=== PATIENT | female | born 1970 | race Caucasian/White ===

== ENCOUNTER 2025-07-18 08:38 | Outpatient (OUT) | payer MEDICAID, SELFPAY ==
--- OUTSIDE RECORDS SUMMARY | 2025-04-25 06:00 | XMS_ITS ---
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 Name Role Phone Kolton Brown Primary Care Provider Mike Lora Unavailable [phone] REASON FOR VISIT Left Shoulder Manipulation Under Anesthesia Encounters Encounter Location Date Provider Diagnosis [facility] [address] [place] [address] 04/25/2025 Mike Gaines Plan Of Treatment Next Appt Details Provider Name:Mike Rivera and, 08/07/2025 09:15:00 AM, [facility] , [address], [address], Progress Notes * LUCHO HELTON ADOB: 0 (55 yo F)Acc No.[id number]:04/25/2025 Patient:?LUCHO HELTON :?Mike Gaines, MDDOB:1970???Age:55 Y???Sex:FemaleDate:04/25/2025Phone:[phone]: [place], [place]-[id number]:Kolton Brown * Images: * Electronic signature of Mike Gaines MD on 07/18/2025 at 08:42 AM ESTSign off status: Pending * Provider: Betina Gaines MD Date: 0 04/25/2025 Generated for Printing/Faxing/eTransmitting on:?07/18/2025 08:42 AM EST
--- OUTSIDE RECORDS SUMMARY | 2025-05-08 06:00 | XMS_ITS ---
Author Organization [facility] Address [address] [place] [address] Care Team Providers Care Taxi Proprietor Name Role Phone Kolton Brown Primary Care Provider Mike Lora [facility] [phone] REASON FOR VISIT 1st PO, lt shoulder manipulation under anesthesia Encounters Encounter Location Date Provider Diagnosis [facility] [address] [address] 05/08/2025 Mike Gaines Plan Of Treatment Next Appt Details Provider Name:Mike Rivera and, 08/07/2025 09:15:00 AM, [address], [address], Progress Notes * LUCHO HELTON ADOB: 0 (55 yo F)Acc No.[id number]:05/08/2025 Progress Notes Patient: Dale LÓPEZ LUCHO Herrera :?Mike Gaines, MDDOB:1970???Age:55 Y???Sex:FemaleDate:05/08/2025Phone:[phone]: [place], [place]-[id number]:Kolton Brown Subjective: * Chief Complaints: * 1 . 1st PO, lt shoulder manipulation under anesthesia. * Medical History: Objective: * Vitals: Assessment: Plan: * Treatment: Forms: * Images: * Electronic signature of Mike Gaines MD on 07/18/2025 at 08:42 AM ESTSign off status: Pending * Provider: Betina Gaines MD Date: 0 05/08/2025 Generated for Printing/Faxing/eTransmitting on:?07/18/2025 08:42 AM EST
--- OUTSIDE RECORDS SUMMARY | 2025-06-20 05:30 | XMS_ITS ---
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 Assessments Encounter Date Diagnosis (ICD Code) Assessment Notes Treatment Notes Treatment Clinical Notes Section Notes 06/20/2025 Adhesive capsulitis of shoulder, left (ICD-10 - M75.02) Plan Of Treatment Next Appt Details Provider Name:Mike Rivera and, 08/07/2025 09:15:00 AM, [address] [facility] [address], [address], Progress Notes * LUCHO HELTON ADOB: 0 (55 yo F)Acc No.[id number]:06/20/2025 Patient:?LUCHO HELTON :?Mike Gaines MDDOB:1970???Age:55 Y???Sex:FemaleDate:06/20/2025Phone:[phone]: [place], [place]-[id number]:Kolton Brown * Images: * Electronic signature of Mike Gaines MD on 07/18/2025 at 08:42 AM ESTSign off status: Pending * Provider: Betina Gaines MD Date: Generated for Printing/Faxing/eTransmitting on:?07/18/2025 08:42 AM EST
--- OUTSIDE RECORDS SUMMARY | 2025-07-18 08:42 | XMS_ITS | Clinical Summary ---
Author Organization [facility] Address [address] [place] [address] Care Team Providers Care Opener Verifier [employer] Name Role Phone Unavailable Primary Care Provider Unavailabl e Social History Tobacco UseTypesPacks/DayYears UsedDateSmoking Tobacco: Never Assessed CommentsUnknownSex and Gender InformationValueDate RecordedSex Assigned at Not on fileLegal CjiCuqjrv02/15/2023 7:25 PM EDTGender IdentityNot on fileSexual OrientationNot on file Plan of Treatment Not on file
--- OUTSIDE RECORDS SUMMARY | 2025-07-18 08:42 | XMS_ITS | Clinical Summary ---
Author Organization [facility] Address [address] [place] [address] Care Team Providers Care Wardrobe Stylist Name Role Phone Cain Magallon MD Unavailable [phone] Kolton Brown DO Primary Care Provider Allergies Active AllergyReactionsCriticalityNoted BqggDyndcrzsTasqylsyZgfvodj89/19/2017 Zujaixh-Dnf-Skz Reductase PybtmepikmNhoqyijzacf57/19/2017Sulfa (Sulfonamide Antibiotics)Kdvbpxb7601/21/20174513RnvwdhKcspyvb26/06/2023Adhesive Tape (Rosins)Rash 01/21/2017 Medications MedicationSigDispense QuantityRefillsLast FilledStart DateEnd DateStatus gabapentin (NEURONTIN) 100 mg capsule Take 300 mg by mouth once daily.Active omeprazole (PRILOSEC) 20 mg capsule Take 20 mg by mouth once daily.Active metFORMIN (GLUCOPHAGE) 500 mg tablet Take 500 mg by mouth once daily.Active ibuprofen (MOTRIN) 800 mg tablet Take 1 tablet by mouth every 8 hours as needed.09/05/2020ctive linaclotide (LINZESS) 145 mcg capsule Take 145 mcg by mouth.06/09/2023ctive diclofenac (VOLTAREN) 1 % topical gel Apply 2 g to affected area.06/09/2023ctive albuterol HFA (PROVENTIL HFA, VENTOLIN HFA) 90 mcg/actuation inhaler TAKE 2 PUFFS BY MOUTH EVERY 4 HOURS ZQEKKX8309/18/2022ctive lisinopril (ZESTRIL) 5 mg tablet Indications:Essential hypertensionTAKE 1 TABLET BY MOUTH DAILY 90 tablet ctive melatonin 3 mg tablet Take 3 mg by mouth as needed for insomnia.Active ascorbic acid (VITAMIN C ORAL) Take by mouth once daily.Active docusate sodium (COLACE ORAL) Take 100 mg by mouth once daily.Active polyethylene glycol 3350 (MIRALAX) 17 gram/dose powder Take 17 g by mouth once daily. Dissolve dose in 4 - 8 ounces of liquid and take as directed. 476 g 11/22/2024tive amLODIPine (NORVASC) 5 mg tablet Indications:Essential hypertensionTAKE 1 TABLET BY MOUTH DAILY 90 tablet 5Active ezetimibe (ZETIA) 10 mg tablet Indications:Mixed hyperlipidemiaTAKE 1 TABLET BY MOUTH DAILY 90 tablet 5Active ezetimibe (ZETIA) 10 mg tablet Indications:Mixed hyperlipidemiaTAKE 1 TABLET BY MOUTH DAILY 90 tablet Discontinued Active Problems ProblemNoted DateDiagnosed LnksWcivdy63/18/2025 Assessment & Plan (11/21/2024 12:06 PM EDT): - Follows with PCP - Albuterol inhaler PRN- rarely needed. Had not used in over a year - Denies SOB, cough, wheezing, recent exacerbation. Lungs CTAB. SpO2 96% RA Type 2 diabetes yxqmurbe34/18/2025 Overview (11/21/2024): - Follows with PCP. - Stable on Metformin Obesity, Class I, BMI 30-34.9003/22/2023astroesophageal reflux kxykksn6610/25/2022 Assessment & Plan (11/20/2024 6:25 PM EDT): - Stable on omeprazole Obesity, Class II, BMI 35-39.9004/30/2021Vasospastic gzgmpk5903/01/2017 Overview (03/01/2017): Microvascular angina Assessment & Plan (11/20/2024 6:38 PM EDT): - Follows with Cardiology, Dr Geiger. JESSICA 06/08/2024. - ECHO 06/14/2023: EF = 63 ?? 5%. -NM PET/CT Cardiac stress test 07/14/2023: 1. PET Perfusion Study: Normal. 2. No evidence of ischemia. 3. No evidence of scarred myocardium. - OSH Cardiac Cath 12/30/2016 showed vasospasm noted with engagement of RCA - Cardiac clearance given by Dr Geiger in mychart encounter on 11/15/2024. Overall at acceptablecardiac risk based on my last assessment in late 2023 of this patient. Obesity, Class III, BMI >= 40 (morbid obesity) E66.01001/24/2017Precordial pain 01/24/2017Essential wmgldeckliyw83/22/2017 Assessment & Plan (11/21/2024 12:04 PM EDT): - Follows with Cardiology, Dr Geiger. [facility] 06/08/2024. - Controlled on Amlodipine and lisinopril - Denies chest pain, palpitations, shortness of breath, lightheadedness, dizziness, syncope, PND, and edema. Last 14 BP Last 14 Encounter BP Readings: Date: BP: 11/21/2024 143/77 10/12/2024 135/70 03/21/2023 121/71 04/30/2021 120/74 07/30/2020 121/51 03/01/2017 133/66 01/24/2017 121/73 Mixed hebczqbvzucffm16/22/2017 Assessment & Plan (11/20/2024 6:28 PM EDT): -Follows with Cardiology - Takes Ezetimibe Encounters DateTypeDepartmentCare XsmbFuznwhyhtbm63/09/2025Refill Cardiology [address] [place] [address] Devon Geiger MD Refill Uyplnrv6007/02/2025Telephone General Surgery [address] [id number] Lauren Crenshaw MD Patient Bjktib8006/25/2025 1:42 PM EDT - 06/25/2025 11:59 PM EDTHospital Encounter Cardiovascular Testing [address] [place] [id number] Dyspnea on exertion [R06.09] Discharge Disposition: Home06/11/2025 3:30 PM EDTOffice Visit Cardiology [address] [place] [address] Devon Geiger MD Dyspnea on exertion (Primary Dx); Essential (primary) hypertension; Bnci-ISTMM-54 condition; Vasospastic rstsvt0206/04/20254748Ygyjbx36/30/2025Telephone Cardiology [address] [place], [place] [phone] Devon Geiger MD Cardiac Clearancefrom Last 3 Months Family History Medical HistoryRelationCommentsCancerBrotheresophagealBreast CancerDaughter CancerFatherCataractFatherCoronary Artery DiseaseFatherCABG x 3DiabetesFather HeartFatherHyperlipidemiaFatherHypertensionFatherCataractMotherHypertension MotherKidney DiseaseMotherCancerSistersmall cell carcinomaAnesthesia ProblemsNo Family HistoryMalig HyperthermiaNo Family HistoryRelationStatusCommentsBrother DeceasedDaughterAliveFatherAliveMotherAliveSisterDeceased Social History Tobacco UseTypesPacks/DayYears UsedDateSmoking Tobacco: NeverSmokeless Tobacco: Never Tobacco Cessation:Counseling Given: Not Answered Alcohol UseStandard Drinks/WeekCommentsNo0 (1 standard drink = 0.6 oz pure alcohol)Area Deprivation IndexAnswerDate RecordedNational Score (1-100), lower number is lower riskNot on file08/14/2020State Score (1-10), lower number is lower riskNot on file08/14/2020Data from: https://www.neighborhoodatlas.medicine.[employer].edu/. Last address used for calculationNot on file08/14/2020CommentsNoSex and Gender Information ValueDate RecordedSex Assigned at RwpiiNxjpxt58/18/2020 5:46 AM ESTLegal Sex Etxipm7101/17/2017 10:18 AM EDTGender EplqdbxbHzcdwd12/18/2020 5:46 AM ESTSexual TlczijemdmmSedsjmej18/18/2020 5:46 AM EST Last Filed Vital Signs Vital SignReadingTime TakenCommentsBlood Qhsyijfi411/7310 3:23 PM EDT Bxixm6358 3:23 PM LBOLdqfnoylylu93 ??C (96.8 ??F)11/22/2024 1:30 PM EDT Respiratory Selg4807 3:23 PM EDTOxygen Kjjeacycqk44%06/11/2025 3:23 PM EDTInhaled Oxygen Concentration--Asnrue533.9 kg (240 lb)06/11/2025 3:23 PM EDT Lpjefv390.6 cm (5' 6 )06/11/2025 3:23 PM EDTBody Mass Index38.7406/11/2025 3:23 PM EDT Plan of Treatment Health MaintenanceDue DateLast DoneCommentsDiabetic Foot Exam02/26/1980Annual PCP Team Chronic Disease Visit02/26/1988Anxiety Nlsexagzv62/23/1988Depression Nosbwuutm92/23/1988HIV Hzaqgedsf82/23/1988Hepatitis C Usqexiavm45/23/1988 Hepatitis B Vaccine (1 of 3 - 19+ 3-dose series)1989Pneumococcal Vaccine: 50+ (1 of 2 - PCV)1989Cervical Cancer Mzcykwlzz78/23/1991CT Colonography 2015Cologuard (FIT-DNA)02/25/20152795Lipoqvrermi20/23/2015Colorectal Cancer Csgxvihbo13/23/2015Fecal Occult Blood02/25/20151495Zhjzspxmrcgcu09/23/2015Shingrix Vaccine (1 of 2)02/26/2020LDL Ksalhvazpps07/20/202402/3Dilated Retinal Exam/3Covid-19 Vaccine (1 - 2024- season)2025Influenza Vaccine (#1)2025Urine Albumin:Creatinine Ratio01601/05/2025, 08/18/20234526DlZ3W70610/10/2024, 06/06/2025, 01/24/2025, Additional history existsMammogram Chwpcrrzz29/, 02/28/2025, 02/28/2025, Additional history existsDTaP,Tdap,Td Vaccine (3 - Td or Tdap)03/23/2029 03/23/2019, 10/22/2010 Goals GoalPatient Goal TypeAssociated ProblemsRecent ProgressPatient-Stated?Author Blood Pressure < 130/80 Blood Qarjnyer724/73(06/11/2025 3:23 PM EDT)NoFulks, Disheila Procedures Procedure NamePriorityDate/TimeAssociated DiagnosisCommentsLVEF ECHORoutine 06/25/2025 2:34 PM EDT CUQDGtkdvqe61/21/2025 2:34 PM EDT Dyspnea on exertion from Last 3 Months Results * LVEF ECHO (06/25/2025 2:34 PM EDT)ComponentValueRef RangeTest MethodAnalysis TimePerformed AtPathologist SignatureLV Ejection Mmpetytx21%[facility]IOLOGYComment: (2D biplane) EF > 54 An LV Ejection Fraction of > 50% is normal Specimen (Source)Anatomical Location / LateralityCollection Method / Volume Collection TimeReceived Time06/25/2025 2:34 PM EDT Narrative Authorizing ProviderResult TypeResult StatusDevon Geiger MDLVEF RESULTS Final ResultPerforming OrganizationAddressCity/State/ZIP CodePhone Number [facility] [phone] [place] [address] * ECHO (06/25/2025 2:34 PM EDT)Specimen (Source)Anatomical Location / Laterality Collection Method / VolumeCollection TimeReceived Time06/25/2025 2:34 PM EDT Impressions [facility] - 06/25/2025 4:35 PM EDT CONCLUSIONS: - Technically difficult exam due to suboptimal positioning, body habitus and Frozen left shoulder, pt had shoulder manipulated. - Exam indication: Dyspnea on Exertion - The left ventricle is normal in size. Left ventricular systolic function is normal. EF = 61 ?? 5% (2D biplane) Normal left ventricular diastolic function. - The right ventricle is normal in size. Right ventricular systolic function is normal. - There are no significant valvular abnormalities. - Exam was compared with the prior echocardiographic exam performed on 06/14/2023. There is no significant change. * * * Final * * * Narrative [facility] - 06/25/2025 4:35 PM EDT Echocardiography Report: Transthoracic Echo [facility] Date of service: 06/25/2025 2:34:31 PM Ordering physician: DEVON GEIGER Exam indication: Dyspnea on Exertion Technologist: Norah Weaver [facility] Interpreting physician: Reyes Edmondson MD PATIENT: Name: MS. LUCHO HELTON : 1970 Age: 55 years Gender: F History of hypertension and dyslipidemia. Primary rhythm: sinus. Height: 167.60 cm BSA: 2.25 m?? Weight: 108.86 kg BMI: 38.8 kg/m?? Heart rate ? 70 bpm Blood pressure 114/72 mmHg Technically difficult exam due to suboptimal positioning, body habitus and Frozen left shoulder, pt had shoulder manipulated. Color Doppler was utilized to interrogate the cardiac valves assessed and spectral Doppler was utilized to determine the flow velocities and pressure gradients reported in this exam. Myocardial strain analysis was performed in this exam to aid in the assessment of cardiac function. MEASUREMENTS: ? Value ? Indexed ?Normal Max aortic dimension 3.1 cm Ao < 3.8 Left atrial volume 48 ml (biplane A-L) 22 ml/m Darling <= 34 LV ID (diastole) ? 3.8 cm (2D) ? 1.70 cm/m?? LV ID (systole) ?2.6 cm (2D) ? 1.14 cm/m?? IVS, leaflet tips ?0.8 cm (2D) Posterior wall thickness 0.8 cm (2D) Left ventricular mass ?90 g (2D) ? 40 g/m?? Global peak long strain ??-18.3 % LV stroke volume ? 45 ml (2D biplane) LV end diastolic volume 74 ml (2D biplane) 32.8 ml/m 29<=EDVi<62 LV end systolic volume ?? 29 ml (2D biplane) ??12.9 ml/m?? Ejection Fraction 61 % (2D biplane) EF > 54 FINDINGS: LEFT VENTRICLE The left ventricle is normal in size. Left ventricular systolic function is normal globally. Global LV myocardial strain is normal. The relative regional strain ratio is 0.5 (a score of greater than 1 is sensitive and specific for the diagnosis of cardiac amyloidosis). Normal left ventricular diastolic function. Mitral annular lateral E/e': 5.1. Mitral annular septal E/e': 6.4. Wall Motion: All scored segments are normal. RIGHT VENTRICLE The right ventricle is normal in size. Right ventricular systolic function is normal. RV systolic tissue Doppler velocity is 12.0 cm/s. Tricuspid annular displacement is 2.4 cm. Estimated right ventricular systolic pressure is not reported due to an insufficient tricuspid regurgitation signal. Estimated right atrial pressure is not included as the IVC was not seen. LEFT ATRIUM The left atrial cavity is normal in size. Pulmonary Veins: The pulmonary venous pattern showed normal systolic flow. RIGHT ATRIUM The right atrial cavity is normal in size. MITRAL VALVE The mitral valve leaflets are structurally normal. Iroquois mitral valve. There is trace mitral valve regurgitation. There is no thickening. The pressure half time is 59 msec. The peak mitral E/A ratio is 0.92. The average mitral E/e' ratio is 5.7. The mitral flow deceleration time is 203 msec. TRICUSPID VALVE The tricuspid valve leaflets are structurally normal. Iroquois tricuspid valve. There is trace tricuspid valve regurgitation. There is no thickening. AORTIC VALVE There is no aortic valve regurgitation. Tricuspid aortic valve. There is mild thickening. The peak gradient is 3 mmHg (peak velocity = 85.4 cm/s). PULMONIC VALVE The pulmonic valve was not seen or not interrogated. There is no pulmonic valve regurgitation. AORTA The visualized aorta is normal in size. Measurements - Mid ascending aorta 3.1 cm. PULMONARY ARTERIES The pulmonary arteries are unseen or not interrogated. INTERATRIAL SEPTUM The interatrial septum is unseen or not interrogated. PERICARDIUM There is no pericardial effusion. Authorizing ProviderResult TypeResult StatusNickingsley Geiger MDECHOFinal Result Performing OrganizationAddressCity/State/ZIP CodePhone Number [facility] [address] [place] [address] from Last 3 Months Insurance * Guarantor: uLcho Helton AAcpopeyeunt TypeRelation to PatientDate of BirthPhone Billing RvqqlhcNrffshCrvp1970 [address] [place] [address] [facility] Address: [address] [place] [address] [address] [place] [address] Care Teams Team MemberRelationshipSpecialtyStart DateEnd Date Kolton Brown DO [address] [place] [phone] PCP - GeneralFamily Yqcuvizh81/2/20 Cain Magallon MD [address] [facility] [address] [place] [address] Primary Staff PhysicianCardiology11/21/18
--- OUTSIDE RECORDS SUMMARY | 2025-07-18 08:43 | XMS_ITS | Clinical Summary ---
Author Organization [employer] [facility] Address [id number] [address] [place] [address] Care Team Providers Care Bible Reader Name Role Phone IsiahKolton reid Primary Care Provider [phone] Allergies Active AllergyReactionsCriticalityNoted DateCommentsAdhesiveDermatitis,Other (See Comments),IdaxAyc8006/21/20162988OtbnllrwBgadzznsdf44/17/2016MorphineNausea And Vomiting,XxdvfhmjAeh00/03/1871Pmzxdun-Rej-Htz Reductase Inhibitorsmuscle cramps, Other (See Comments),pain09/05/2007 Muscle aches Sulfa (Sulfonamide Antibiotics)Nausea And UcgyjuwdYgs02/02/2011 Medications MedicationSigDispense QuantityRefillsLast FilledStart DateEnd DateStatus albuterol (PROVENTIL,VENTOLIN) 2.5 mg /3 mL (0.083 %) nebulizer solution Indications:Mild intermittent asthma without complicationInhale 3 mL (2.5 mg total) by nebulization 3 (three) times a day as needed for wheezing. 75 mL ctive docusate sodium (COLACE) 100 mg capsule Take 1 capsule (100 mg total) by mouth in the morning.Active fluticasone propionate (FLONASE) 50 mcg/actuation nasal spray INSTILL ONE SPRAY IN EACH NOSTRIL EVERY MORNING 16 mL ctive ezetimibe (ZETIA) 10 mg tablet 05/14/2024ctive melatonin (CIRCADIN) tablet Take 1 tablet (3 mg total) by mouth.Active amLODIPine (NORVASC) 5 mg tablet 08/06/2024Active lisinopriL (PRINIVIL,ZESTRIL) 5 mg tablet Indications:Type 2 diabetes mellitus with diabetic polyneuropathy ([facility])Take 1 tablet (5 mg total) by mouth in the morning. 90 tablet 4Active ondansetron ODT (ZOFRAN ODT) 4 mg disintegrating tablet Dissolve 1 tablet (4 mg total) on tongue every 8 (eight) hours as needed for nausea or vomiting. 20 tablet 5Active polyethylene glycol (CLEARLAX) 17 gram/dose powder Take 17 g by mouth in the morning. 510 g 5Active cyclobenzaprine (FLEXERIL) 10 mg tablet Take 1 tablet (10 mg total) by mouth every 8 (eight) hours as needed for muscle spasms. 30 tablet 5Active gabapentin (NEURONTIN) 300 mg capsule Indications:Diabetic polyneuropathy associated with type 2 diabetes mellitus ([facility])TAKE 1 CAPSULE BY MOUTH IN THE MORNING AND 1 CAPSULE BEFORE BEDTIME 60 capsule 5Active linaCLOtide (LINZESS) 145 mcg capsule Take 1 capsule (145 mcg total) by mouth every morning before breakfast. 30 capsule 5Active metFORMIN (GLUCOPHAGE) 500 mg tablet Indications:Type 2 diabetes mellitus with diabetic polyneuropathy ([facility])TAKE 2 TABLETS BY MOUTH EVERY MORNING AND TAKE 2 TABLETS BY MOUTH EVERY EVENING WITH MEALS 180 tablet 5Active omeprazole (PriLOSEC) 20 mg capsule TAKE 1 CAPSULE BY MOUTH EVERY MORNING 30 capsule 5Active ibuprofen (MOTRIN) 800 mg tablet Indications:Low back pain, unspecified back pain laterality, unspecified chronicity, unspecified whether sciatica presentTAKE 1 TABLET BY MOUTH EVERY 8 HOURS NEEDED FOR PAIN 90 tablet 5Active albuterol (PROVENTIL HFA;VENTOLIN HFA) 90 mcg/actuation inhaler Indications:Unspecified asthma, uncomplicatedINHALE 2 PUFFS BY MOUTH EVERY 4 HOURS NEEDED FOR WHEEZING OR SHORTNESS OF BREATH 18 g 5Active cyclobenzaprine (FLEXERIL) 10 mg tablet TAKE 1 TABLET BY MOUTH EVERY 8 HOURS NEEDED FOR MUSCLE SPASMS 30 tablet 5Active loratadine (CLARITIN) 10 mg tablet TAKE 1 TABLET BY MOUTH DAILY NEEDED FOR ALLERGIES 30 tablet 5Active loratadine (CLARITIN) 10 mg tablet Take 1 tablet (10 mg total) by mouth daily as needed for allergies. 30 tablet 5109/13/2024Discontinued Active Problems ProblemNoted DateDiagnosed DateMorbid zuqwqaq47/22/2025Colon cancer screening 11/06/2023bnormal finding on CT scan11/06/2023lass 3 severe obesity due to excess calories with serious comorbidity and body mass index (BMI) of40.0 to 44.9 in adult07/11/2023Incomplete rotator cuff tear or rupture of left shoulder, not specified as bohceqwsj06/05/2023Traumatic incomplete tear of left rotator cuff06/09/2023iabetes type 2, /20/2023 Overview (10/25/2022): Gestational diabetes X2. A1C high was 6.5, fasting BS 120. GERD (gastroesophageal reflux disease)3Knee mowvii1610/25/2022 Araeewwqmpxmh08/20/2023Other ybfjokvw09/20/2023iabetic polyneuropathy associated with type 2 diabetes /19/2023Mixed ofehvfqcgobk18/02/2021 Spondylosis without myelopathy or radiculopathy, thoracic fkvnsq7005/01/2020Renal stone12/06/2019Calculus of left vomjbh5710/17/20193499Easedxoyrghg82/20/2018Diabetic evndprpgiy93/22/2018Mixed bccpjwdtnxhrqa65/22/2017Syndrome X (cardiac)01/10/2017 Overview (10/25/2022): Microvascular angina Arteriosclerotic vascular lwyquhb1911/16/2016Lower back pain08/16/2016Calcaneal spur09/18/2014bnormal sensation of upper /04/2013Pain in limb 08/08/20130782Oxycmgvretng31/14/2012Epicondylitis, lateral (tennis elbow)05/19/2012 Essential padprptuyrys60/14/2012 Resolved Problems ProblemNoted DateDiagnosed DateResolved DateModerate major fmypkubxve89/20/2023 01/23/2024Obesity (BMI 30-39.9) Encounters DateTypeDepartmentCare ZyggFdojpfymzmt72/09/2025Refill [facility] [address] [place] [address] Kolton Brown, 06/20/2025Orders Only [facility] [address] [place] [address] Kolton Brown, 06/16/2025Refill [facility] [address] [place] [address] Kolton Brown, Unspecified asthma, vvdcduwepkhjx84/18/2025Refill [facility] [address] [place] [address] Kolton Brown, Low back pain, unspecified back pain laterality, unspecified chronicity, unspecified whether sciatica ocxivdh3905/13/2025 4:30 PM EDTTelemedicine [facility] [address] [place] [address] Kolton Brown, COVID-19 (Primary Dx); Controlled type 2 diabetes mellitus with diabetic polyneuropathy, without long- term current use of insulin ([facility] Morbid obesity ([facility])05/13/20253719Rvlyzz94/08/2025Telephone [facility] [address] [place] [address] Madhuri Morel, CODY 05/13/2025Orders Only [facility] [address] [place] [address] Ref Prov, Not In System 05/03/2025Refill [facility] [address] [place] [address] Kolton Brown, DO from Last 3 Months Immunizations ImmunizationAdministration DatesNext QbpOrvc2903/23/2019,10/22/2010 Family History Medical HistoryRelationNameCommentsEsophageal cancerBrotherBreast cancerDaughter 1PancreatitisDaughter 2DiabetesFatherHeart diseaseFatherHyperlipidemiaFather HypertensionFatherHypertensionMotherLung cancerSisterRelationNameStatusComments BrotherDeceasedDaughter 1AliveDaughter 2AliveFatherAliveMotherAliveSister DeceasedSon 1AliveSon 2Alive Social History Tobacco UseTypesPacks/DayYears UsedDateSmoking Tobacco: NeverSmokeless Tobacco: Never Tobacco Cessation:Counseling Given: Not Answered Alcohol UseStandard Drinks/WeekCommentsNot Currently0 (1 standard drink = 0.6 oz pure alcohol)[facility] UtilitiesAnswerDate RecordedIn the past 12 months has the [employer], gas, oil, or water [employer] threatened to shut off services in your home?No01/23/2024Social Connection and Isolation PanelAnswerDate RecordedIn a typical week, how many times do you talk on the phone with family, friends, or neighbors?More than three times a week10/18/2022How often do you get together with friends or relatives?Twice a week10/18/2022How often do you attend rastafarian or taoism services?Never10/18/2022o you belong to any clubs or organizations such as rastafarian groups, unions, fraternal or athletic groups, or school groups?No 10/18/2022How often do you attend meetings of the clubs or organizations you belong to?Never10/18/2022re you , , , , never , or living with a partner?Izwsuux1010/18/2022UDIT-CAnswerDate RecordedQ1: How often do you have a drink containing alcohol?Never10/18/2022Q2: How many drinks containing alcohol do you have on a typical day when you are drinking? Patient does not drink10/18/2022Q3: How often do you have six or more drinks on one occasion?Never10/18/2022Overall Financial Resource Strain (CARDIA)AnswerDate RecordedHow hard is it for you to pay for the very basics like food, housing, medical care, and heating?Not hard at all01/22/2025PHQ-2AnswerDate RecordedTotal Fmowk664[facility] [place] [facility] - Occupational Stress QuestionnaireAnswerDate RecordedDo you feel stress - tense, restless, nervous, or anxious, or unable to sleep at night because yourmind is troubled all the time - these days?Very much10/18/2022Exercise Vital SignAnswerDate RecordedOn average, how many days per week do you engage in moderate to strenuous exercise (like a brisk walk)?5 days01/23/2024On average, how many minutes do you engage in exercise at this level?30 min01/23/2024RAPARE - TransportationAnswerDate RecordedIn the past 12 months, has lack of transportation kept you from medical appointments or from getting medications?No01/22/2025In the past 12 months, has lack of transportation kept you from meetings, work, or from getting things needed for daily living?No01/22/2025Housing InstabilityAnswerDate RecordedAre you worried or concerned that in the next two months you may not have stable housing that you own, rent or stay in as a part of a household?No01/22/2025 ChildcareAnswerDate RecordedDo problems getting director child make it difficult for you to work or study?No10/18/2022EmploymentAnswerDate RecordedDo you need help finding a local career center and/or a training program?No10/18/2022Hunger ScreeningAnswerDate RecordedWithin the past 12 months we worried whether our food would run out before we got money to buy more.Never True01/24/2025Within the past 12 months the food we bought just didn't last and we didn't have money to get more.Never True01/24/2025Purpose - LifeAnswerDate RecordedI have a purpose and direction in my life.Strongly Agree10/18/2022EducationAnswerDate RecordedWhat is the highest level of school you have completed or the highest degree you have received?Associate degree: academic dmixoay1610/18/2022 CommentsNoSex and Gender InformationValueDate RecordedSex Assigned at Himykp9806/04/2022 10:35 AM EDTLegal PrqOaqpib38/04/2015 12:01 PM EDTGender InjxtyzeQznycd52/30/2022 10:35 AM EDTSexual KfkhmwhgqghOjarefji40/30/2022 10:39 AM EDT Last Filed Vital Signs Vital SignReadingTime TakenCommentsBlood Ocpruuwy325/80001/24/2025 9:37 AM EDT Wtkhu161801/24/2025 9:37 AM USZTompxdcuhdc62.3 ??C (101 ??F)05/13/2025 5:11 PM EDT Respiratory Utjq856201/24/2025 9:37 AM EDTOxygen Oefgfsqukv53%01/24/2025 9:37 AM EDTInhaled Oxygen Concentration--Ygymao188.9 kg (242 lb 3.2 oz)01/24/2025 9:37 AM XAPPpgqwf902.6 cm (5' 5.98 )01/24/2025 9:37 AM EDTBody Mass Index39.11 01/24/2025 9:37 AM EDT Plan of Treatment DateTypeDepartmentCare Team (Latest Contact Info)Yviiplxflka85/24/2025 10:30 AM ESTOffice Visit [facility] [address] [place] [phone] Kolton Brown, DO [address], [place] [address] Health MaintenanceDue DateLast DoneCommentsStatin Use: Llxumdqijmgctu1970 Statin Use: Etagcadb1970Influenza Pcvccwn5405/06/2025Diabetic Foot Exam , 10/25/2022, 10/25/2022Zoster (Shingles) Vaccine (1 of 2) 07/27/2025Postponed from 02/26/2020 (Vaccine Not Available)Adult BMI Follow Up [place] BMI Aolmqmvtx70/2025Depression Xgdnafkyu91/Tobacco Azdnraehq36/Mammogram /, 02/28/2025, 02/15/2024, Additional history existsDiabetic Ophthalmology Exam/01/2025, 04/20/2024, 06/10/2023, Additional history existsDTaP,Tdap and Td Vaccines (3 - Td or Tdap)/, 10/22/20100740Ysiouaflcbp31/13/203403/, 11/16/2023, 08/22/2018, Additional history existsPap DicffPtngfdjcgqfn78/28/2021, 07/02/2021 Medical Devices Not on file Procedures Procedure NamePriorityDate/TimeAssociated DiagnosisComments DIABETES EYE EXAM Oevobak0405/10/2025 8:58 AM EDTMAMM SCREENING BILATERAL W OEREdmgyzh93/26/2025 Encounter for screening mammogram for malignant neoplasm of breast [employer] FIGZKRRPFLAUgcoqdu21/13/2024 7:58 AM EDT from Last 3 Months or Most Recently Relevant to Health Maintenance Results * DIABETES EYE EXAM (05/10/2025 8:58 AM EDT) Narrative Authorizing ProviderResult TypeResult StatusNot In System Ref ProvHEALTH MAINTENANCEFinal ResultPerforming OrganizationAddressCity/State/ZIP CodePhone Number MANUALLY TRANSCRIBED RESULTS * Mammography screening bilateral with CAD (02/28/2025)Anatomical Region LateralityModalityBreastBilateralMammographySpecimen (Source)Anatomical Location / LateralityCollection Method / VolumeCollection TimeReceived Time 02/28/2025 Narrative Authorizing ProviderResult TypeResult StatusDennis G Furlong DOIMG MAMMOGRAPHY ORDERABLESFinal Result * Colonoscopy Report (11/16/2023 7:58 AM EDT)Specimen (Source)Anatomical Location / LateralityCollection Method / VolumeCollection TimeReceived Time Narrative SYSTEMGENERATED, DOCUMENTATION - 11/16/2023 7:58 AM EDT This order has been auto-finalized for image and report archival in PACs. *For full report details, please reach out to your physician. ??This image is visible to you in MyChart.* Authorizing ProviderResult TypeResult StatusJocari Mujica DOIMG OR IMG ORDERABLES Final Result from Last 3 Months or Most Recently Relevant to Health Maintenance Insurance Care Teams Team MemberRelationshipSpecialtyStart DateEnd Date Kolton Brown DO [address], [place] [address] PCP - GeneralFamily Medicine05/31/22
--- OUTSIDE RECORDS SUMMARY | 2025-07-18 08:43 | XMS_ITS | Patient Health Record ---
Author Organization [facility] Address [address] [place] [address] Care Team Providers Care Forestry Hunter Name Role Phone Kolton Brown Primary Care Provider Francis Loraen Unavailable [phone] Anatoly Windy Unavailable [phone] Allergies Allergen (clinical drug ingredient) Drug/Non Drug Allergy documented on EMR Reaction Allergy Type Onset Date Status SULFURUnknownDrug AllergyActivemorphinemorphineUnknownDrug AllergyActiveStatins UnknownDrug AllergyActive Results Component Value Reference Range Notes Surgery Scheduling (Not yet reviewed by provider) Interpretation:[facility] @ [facility] 06/20/25 Performing Lab: Notes/Report: [facility] @ [facility] 06/20/25 Social Sec number: [id number] Primary Insurance Company:[employer]/Assist:Osmosis Location: [facility] Date & Time:06/20/25 @ 10:30 a.m.Procedure:Left Shoulder Manipulation Under Anesthesia, 20308Akksdsefx:Left Shoulder Adhesive Capsulitis, M75.02Admission Type:OutpatientAnesthesia Type/CPNB:GeneralLatex AllergyNoLab Location:Frances Travis:Sekou- PT/OT EVAL AND TREAT 3X/WEEK FOR 6 WEEKS Reviewed date:09/11/2024 03:31:24 PM Interpretation: Performing Lab: Notes/Report: MRI : Shoulder W/O Contrast Left - [id number] Reviewed date:01/23/2025 10:26:00 AM Interpretation: Performing Lab: Notes/Report: Surgery Scheduling Reviewed date:05/16/2025 08:31:31 AM Interpretation: Performing Lab: Notes/Report: Social Sec number:[phone] Insurance Company:[employer]/Assist:Gaines Surgery [facility]er Man[facility]ulation Under Anesthesia, 331[address]Hyzzugixo:Left Shoulder Adhesive Capsulitis,Admission Type:OutpatientAnesthesia Type/CPNB:GeneralLab [facility]Tejal Basic Metabolic Prof Reviewed date:07/12/2025 02:07:23 PM Interpretation: Performing Lab: Notes/Report: [facility] [address] [place] [address] Wall To Wall Carpet Installer: Patrick Fletcher MDNA (Sodium)230393-818 mmol/LK (Potassium)4.63.7- 5.3 mmol/RZcfcfxpb45464-136 mmol/JDR12344-89 mmol/LAnion Rgb038-95 mmol/LGlucose 18206-03 mg/dLBUN (Urea N)146-20 mg/dLCreatinine0.80.50-0.90 mg/dLeGFR>90>60 mL/min/1.73m2 These results are not intended for use in patients <18 years of age. eGFR results are calculated without a race factor using the 2020 CKD-EPI equation. Careful clinical correlation is recommended, particularly when comparing to results calculated using previous equations. The CKD-EPI equation is less accurate in patients with extremes of muscle mass, extra-renal metabolism of creatine, excessive creatine ingestion, or following therapy that affects renal tubular secretion. BUN/CRE Pykcf022-37Vlfiofo66.08.6-10.4 mg/dLPerforming Lab:see [address] [place] [id number] Hemoglobin A1C Reviewed date:07/12/2025 02:07:23 PM Interpretation: Performing Lab: Notes/Report: [address] [id number] Wall To Wall Carpet Installer: Preston Warner MDHemoglobin A1C6.64.0-6.0 %Estimated Ave Onzp753 The ADA and AACC recommend providing the estimated average glucose result to permit better patient understanding of their HBA1c result. Performing Lab:see [address] [place] [address] CBC with Diff Reviewed date:07/12/2025 02:07:23 PM Interpretation: Performing Lab: Notes/Report: [facility] [address] [place] [address] Wall To Wall Carpet Installer: Patrick Fletcher MDWBC Count6.23.5-11.3 k/uLRBC Count4.403.95-5.11 m/iBFfrkkwobvu26.411.9-15.1 g/eOQwzpfdstxq78.736.3-47.1 %MCV88.082.6-102.9 fLMCH 30.525.2-33.5 rpNTJH36.628.4-34.8 g/dLRDW13.211.8-14.4 %Platelet Krsph866173-219 k/uLMPV9.78.1-13.5 fLNRBC Automated0.00.0 per 100 WBCNeutrophil (Seg)5336-65 % Ymoqowixut6203-85 %Bsvujtgc94-60 %Xkrrmybetd82-7 %Ktvkaook51-7 %Immature Cgllcmqbsfg60 %Abs.Neutrophil (Seg)3.271.50-8.10 k/uLAbs. Lymph2.191.10-3.70 k/uLAbs. Monocyte0.520.10-1.20 k/uLAbs. Eosinophil0.120.00-0.44 k/uLAbs. Basophil<0.030.00-0.20 k/uLAbs.Imm.Granulocyte0.040.00-0.30 k/uLPerforming Lab: see noteTMHT - [facility] [address] [place] [address] Reason For Referral Reason APPROVED FOR PT @ [facility] 3X6, OFF WORK 08/17/24 lvm with patient she needs to complete motion for M75.02 Diagnosis 1 Traumatic tear of le ft rotator cuff, subsequent encounter (S46.612D) Referral Organization [facility] Referring Provider First Name Mike Referring Provider Last Name Gaines Referring Provider Speciality Orthopedic Surgery Referred Organization [facility] Referred Address [address],[place],[address],[place] General Notes [place], Amanda 08:41:54 AM > 08/15 can you please check dx, do we need to add adhesive capsulitis?, Yasmin stein Lisa 08/17/2024 09:29:53 AM >ok, if more PT is needed I would ask for it just using s46.012. but yes, I would add the adhesive capsulitis to her claim. Francine stein Jessika 08/17/2024 11:01:24 AM > faxed note and c9 for PT. lvm with patient she needs to complete a motion for M75.02Francine Jessika 08/17/2024 11:14:06 AM > rcvd a call back from patient, she is going to stop in the [place] office on Tuesday and sign the motion, Amanda Escamilla 08/21/2024 12:38:20 PM > rcvd C9 Auth Cont. PT LT shoulder 18 visits to 10/15, see attachment Referral Priority Routine Reason ALLOWED for M75.02 A dhesive caps. AD 09/26 note Diagnosis 1 Traumatic tear of le ft rotator cuff, subsequent encounter (S46.012D) Referral Organization [facility] Referring Provider First Name Mike Referring Provider Last Name Liana Referring Provider Speciality Orthopedic Surgery Referred Organization [facility] Referred Address [address] [address],[place], [place],[address], General Notes Abebe Parrish 09/26/2024 10:07:53 AM > Continue off work until 6 week Francine warren Jessika 09/27/2024 09:09:05 AM > faxed note and updated medcoYasmin Lisa 10/22/2024 05:16:27 PM >motion filed 08-22 to add adhesive capsulitis to her claim. can you ck on status? Francine stein Jessika 10/23/2024 08:14:11 AM > lvm with Rachel Marcus ph: [phone] to call me back with a update.Francine Jessika 10/25/2024 10:53:01 AM > lvm again with Rachel, also faxed the motion to her and asked if it was allowed yet., Amanda Escamilla 10/29/2024 01:52:17 PM > Sent a email to Letha with [facility] asking for a update., Amanda Escamilla 11/01/2024 11:25:37 AM > still no response, I sent another email to Letha., Perla Hoffman 11/02/2024 06:56:59 AM >[facility] site shows a dho hearing for 10-23-24 which was postponed, IW had an darya on 10-26-24. Hopefully she went to this exam., Amanda Escamilla 11/05/2024 08:38:43 AM > noted, thank you, Amanda Escamilla 11/20/2024 12:30:47 PM > [facility] hearing is scheduled for 12/06, Amanda Escamilla 12/31/2024 11:28:07 AM > The hearing on 12/06 they did allow the adhesive capsulitis, but the employer had filed an appeal on 12/18. It will probably go to another hearing., Amanda Escamilla 01/10/2025 08:47:05 AM > Called and spoke with Letha, no hearing date is set yet., Amanda Escamilla 01/24/2025 02:18:07 PM > TERESA hearing for M75.02 is scheduled 01/31, Amanda Escamilla 02/22/2025 10:53:53 AM > per [facility] website the employer had requested to cancel the hearing and they were withdrawing the appeal. Called and spoke with Chuck, she said M75.02 is now allowed on the clm. FYI for if you have any outstanding clm with this dx. Referral Priority Routine Reason APPROVED c9 end date ext for APPROVED for MRI LT shoulder done 12/17 Diagnosis 1 Traumatic tear of le ft rotator cuff, subsequent encounter (S46.012D) Referral Organization [facility] Referring Provider First Name Mike Referring Provider Last Name [place] Referring Provider Speciality Orthopedic Surgery Referred Organization [facility] Referred Address [address] ,[place] [address],[place], [place],[address],[place] General Notes Abebe Parrish 11/14/2024 10:41:45 AM > Continue off work. Obtain authorization for left shoulder MRI. Sent prescription for prednisone. Request additional diagnosis of flow through adhesive capsulitis., Amanda Escamilla 11/15/2024 08:47:07 AM > Needing the MRI order added please, tksShivani Kimberly 11/15/2024 08:55:25 AM > Order is in now. Francine Luna Jessika 11/15/2024 09:19:51 AM > faxed note and c9 for MRI LT shoulder, Amanda Escamilla 11/30/2024 01:34:18 PM > refaxed c9, Rachel's number says its no longer in service. Sent a email to Letha Crenshaw to see if this c9 has been addressed and see who is on the clm now., Amanda Escamilla 12/04/2024 07:42:46 AM > rcvd c9 auth for MRI LT shoulder, see attachment, Amanda Escamilla 01/10/2025 08:41:06 AM > MRI was done on 12/17, c9 on 12/10. Sent for end date ext. request to 12/17, Amanda Escamilla 01/15/2025 03:49:10 PM > rcvd c9 end date ext to 12/18, see attachment Referral Priority Routine Reason AD 12/19 MRI FUP not e Diagnosis 1 Traumatic tear of le ft rotator cuff, subsequent encounter (S46.012D) Referral Organization [facility] Referring Provider First Name Mike Referring Provider Last Name [place] Referring Provider Speciality Orthopedic Surgery Referred Organization [facility] Referred Address [address],[place],[address], General Notes Abebe Parrish 12/19/2024 11:20:04 AM > Continue off work for 3 months. Lucho would like the notes and her MRI report sent to her commercial real estate attorney, Amanda Escamilla 12/20/2024 10:26:52 AM > faxed note and updated medco Referral Priority Routine Reason APPROVED for left sh oulder manipulation and PT Diagnosis 1 Adhesive capsulitis of shoulder, left (M75.02) Referral Organization [facility] Referring Provider First Name Mike Referring Provider Last Name Liana Referring Provider Speciality Orthopedic Surgery Referred Organization [facility] Referred Address [address] ,[place] [address],[place],[address],[place] General Notes Abebe Parrish 01/09/2025 10:33:59 AM > Obtain authorization for left shoulder manipulation under anesthesia. Request authorization for therapy to start day after surgery, for 5 days per week for 2 weeks. Off work note is in visit from 12/19/24., Amanda Escamilla 01/09/2025 01:50:59 PM > can you please let me know the dx, cpt and which dx go with what cpt for sx (Left shoulder manipulation), Ezekiel stein Chad 01/09/2025 02:01:22 PM >Cpt code 96318 and icd-10 as M75.02, Amanda Escamilla 01/10/2025 08:47:48 AM > Called and spoke with Letha (clm examiner) and the Adhesive caps. is still not allowed on her clm, the last hearing she had for it, it did get allowed but the employer had filed an appeal on it, so it will be going to another hearing and we don't have a date for that yet. If they are wanting to proceed with sx it will need to go with reg in for now or she will need to wait until the dx M75.02 is allowed on her clm., Winsome Parrish 01/18/2025 08:34:34 AM > Spoke with Lucho. Her commercial real estate attorney is sending the MRI to employers commercial real estate attorney to see if they will drop the next hearing so they can proceed. Will let us know.Francine Jessika 01/18/2025 09:43:35 AM > ok, notedFrancine Jessika 01/29/2025 10:49:54 AM > TERESA hearing is scheduled for 01/31Francine Jessika 02/22/2025 10:53:53 AM > per [facility] website the employer had requested to cancel the hearing and they were withdrawing the appeal. Called and spoke with Chuck, she said M75.02 is now allowed on the cl. faxed c9 for sx and po pt., Amanda Escamilla 02/28/2025 10:15:31 AM > rcvd c9 auth for shoulder manipulation and po pt, see attachment. auth is good till 05/04, Marisol Bourne 02/28/2025 12:36:53 PM >PATIENT IS GOING TO WAIT AND SEE WHAT THE EMG RESULTS ARE. WE WILL SCHEDULE WHEN SHE FOLLOWS UP FOR THE EMG, Winsome Parrish 04/19/2025 12:20:31 PM > Lucho has to have cardiac clearance prior to her surgery. Card Grinder Helper is unable to get her in until 06/11/25. Scheduled surgery for 06/20/25. Can we try and get the auth extended through 06/20/25 or wait until closer in case it needs to be rescheduled for any reason?, Amanda Escamilla 04/19/2025 01:16:17 PM > We will wait and request for end date ext. just to be safe., Amanda Escamilla 06/03/2025 09:59:34 AM > Spoke with Ana Luisa and requested for end date ext. to 08/02, Amanda Escamilla 06/03/2025 11:05:47 AM > rcvd approval for end date ext. to 08/02, see attachment. Referral Priority Stat Reason APPROVED FOR EMG LEF T UPPER EXTREMITY, SEE TELEPHONE ENCOUNTER Diagnosis 1 Numbness of left ram d (R20.0) Referral Organization [facility] Referring Provider First Name Mike Referring Provider Last Name Gaines Referring Provider Speciality Orthopedic Surgery Referred Organization Leigha [facility]w, Dr. Ramos Referred Address [address] [place] [address], [place], [place],[address],[place] General Notes Amanda Escamilla 10:53:39 AM EDT > christofer if the will approve anything. I just faxed c9 for sx on 02/22 and the patient hasn't been seen since 01/09. Faxed c9, Amanda Escamilla 02/28/2025 10:19:45 AM > rcvd c9 auth for EMG LUE, see attachment. auth is good till 04/29, Marisol Bourne 02/28/2025 11:53:24 AM >faxed Referral Priority Routine Reason AD 04/15 note Diagnosis 1 Traumatic tear of le ft rotator cuff, subsequent encounter (S46.012D) Referral Organization [facility] Referring Provider First Name Mike Referring Provider Last Name [place] Referring Provider Speciality Orthopedic Surgery Referred Organization [facility] Referred Address [address] ,[place], [place],[address],[place] General Notes Amanda Escamilla 08:37:36 AM > 04/15 can you please check dx, tksSelena Cynthia 04/16/2025 08:53:24 AM >CODES ARE IN FOR THE PROCEDURE AND ALLOWED M75.02 AND S46.012D, Amanda Escamilla 04/16/2025 09:50:56 AM > don't we need a carpal tunnel dx added to the note from the EMG?, Britta Walters 04/16/2025 09:53:56 AM > I can add it, but it states not related to her BWC., Amanda Escamilla 04/16/2025 10:11:21 AM > noted, faxed note Referral Priority Routine Reason bwc - please submit for therapy Diagnosis 1 Adhesive capsulitis of shoulder, left (M75.02) Referral Organization [facility] Referring Provider First Name Mike Referring Provider Last Name [place] Referring Provider [facility] Orthopedic Surgery Referred Organization [facility] Referred Address [address],[place], [place],[address],[place] General Notes Marisol Bourne 2024 11:04:55 AM > i see that PT was approved with the surgery approval but she said she was told its only approved until 07/05 so just checking?, Amanda Escamilla 06/26/2025 12:53:37 PM > The c9 says, therapy is approved till 08/02, so she is good!, Marisol Bourne 06/26/2025 12:57:06 PM >PATIENT NOTIFIED, THANK YOU! NOT SURE IF YOU NEED THIS BACK?, Amanda Escamilla 06/26/2025 12:58:38 PM > you're welcome, nope I'm good! Referral Priority Stat Social History Tobacco Use: Social History Observation Description Date Details (start date - stop date) Never Smoker NA - NA Smoking History Question Answer Notes Smoking Status NonSmoker Problems Problem Type SNOMED Code ICD Code Onset Dates Problem Status W/U Status Risk Notes Problem Tendinitis of left r otator cuff (26382544538434775) Tendinitis of left rotator cuff (M75.82) ActiveconfirmedProblemCarpal tunnel syndrome (71748104)Carpal tunnel syndrome, left upper limb (G56.02)ActiveconfirmedProblemStrain of rotator cuff of left shoulder (disorder) (28524703367230806)Strain of muscle(s) and tendon(s) of the rotator cuff of left shoulder, subsequent encounter (S46.012D)Activeconfirmed ProblemAdhesive capsulitis of shoulder (392708553)Adhesive capsulitis of shoulder, left (M75.02)ActiveconfirmedProblemLocalized swelling of both lower legs (21081842546471131)Localized swelling of both lower legs (R22.43)Active confirmedProblemPostoperative pain (finding) (794998607)Post-op pain (G89.18) ActiveconfirmedProblemStrain of muscle of right shoulder (28496135604407399) Strain of muscle(s) and tendon(s) of the rotator cuff of right shoulder, initial encounter (S46.011A)InactiveconfirmedProblemInjury of tendon of the rotator cuff of shoulder (475981724)Strain of muscle(s) and tendon(s) of the rotator cuff of right shoulder, subsequent encounter (S46.011D)InactiveconfirmedProblemStrain of rotator cuff of left shoulder (disorder) (69860716135985693)Rotator cuff strain, left, initial encounter (S46.012A)Inactiveconfirmed Vital Signs Height 66 in 11/14/2024 Ghektq962 lbs11/14/2024BMI38.7311/14/2024 Encounters Encounter Location Date Provider Diagnosis [facility] [address] [place] [address] 12/17/2024 Mike Gaines Acute pain of left shoulder M25.512 and Injury of left shoulder S49.92XA [facility] [address] [place] [address] 05/31/2025 Mike Liana Adhesive capsulitis of shoulder, left M75.02 ; Strain of muscle(s) and tendon(s) of the rotator cuff of left shoulder, subsequent encounter S46.012D and Carpal tunnel syndrome, left upper limb G56.02 [facility] [address] [place] [address] 06/20/2025 Mike Gaines Adhesive capsulitis of shoulder, left M75.02 [facility] [address] [place] [address] 06/26/2025 Mike Gaines Adhesive capsulitis of shoulder, left M75.02 [facility] [address] [place] [address] 08/15/2024 Mike Gaines Traumatic tear of left rotator cuff, subsequent encounter S46.012D and Adhesive capsulitis of shoulder, left M75.02 [facility] [address] [place] [address] 09/26/2024 Mike Gaines Traumatic tear of left rotator cuff, subsequent encounter S46.012D and Adhesive capsulitis of shoulder, left M75.02 [facility] [address] [place] [address] 11/14/2024 Mike Gaines Traumatic tear of left rotator cuff, subsequent encounter S46.012D and Tendinitis of left rotator cuff M75.82 [facility] [address] [place] [address] 12/19/2024 Mike Gaines Traumatic tear of left rotator cuff, subsequent encounter S46.012D ; Tendinitis of left rotator cuff M75.82 and Adhesive capsulitis of shoulder, left M75.02 [facility] [address] [place] [address] 01/09/2025 Mike Gaines Adhesive capsulitis of shoulder, left M75.02 and Traumatic tear of left rotator cuff, subsequent encounter S46.012D [facility] [address] [place] [address] 04/15/2025 Mike Gaines Adhesive capsulitis of shoulder, left M75.02 ; Strain of muscle(s) and tendon(s) of the rotator cuff of left shoulder, subsequent encounter S46.012D and Carpal tunnel syndrome, left upper limb G56.02 [facility] [address] [place] [address] 08/01/2024 Windy Ledbetter [facility] [address] [place] [address]/[facility] [place] [address] 02/28/2025[facility] CenterNumbness of left hand R20.0[place] [address] [place] [address]/[place] [address] [place] [address]/04/2025[facility] [place] [place] [address] 08/25/2024[facility] [address] [place] [address]/[facility] CenterNumbness of left hand R20.0 Assessments Encounter Date Diagnosis (ICD Code) Assessment Notes Treatment Notes Treatment Clinical Notes Section Notes 08/15/2024 Adhesive capsulitis of shoulder, left (ICD-10 - M75.02) a110/16/2023Traumatic tear of left rotator cuff, subsequent encounter (ICD-10 - S46.012D)a009/26/2024Traumatic tear of left rotator cuff, subsequent encounter (ICD-10 - S46.012D)11/14/2024Tendinitis of left rotator cuff (ICD-10 - M75.82) 11/14/2024Traumatic tear of left rotator cuff, subsequent encounter (ICD-10 - S46.012D)12/17/2024ute pain of left shoulder (ICD-10 - M25.512)12/17/2024 Injury of left shoulder (ICD-10 - S49.92XA)12/19/2024Tendinitis of left rotator cuff (ICD-10 - M75.82)12/19/2024Traumatic tear of left rotator cuff, subsequent encounter (ICD-10 - S46.012D)01/09/2025dhesive capsulitis of shoulder, left (ICD-10 - M75.02)01/09/2025Traumatic tear of left rotator cuff, subsequent encounter (ICD-10 - S46.012D)2025Numbness of left hand (ICD-10 - R20.0) 02/28/2025Numbness of left hand (ICD-10 - R20.0)04/15/2025Strain of muscle(s) and tendon(s) of the rotator cuff of left shoulder, subsequent encounter (ICD-10 - S46.012D)04/15/2025dhesive capsulitis of shoulder, left (ICD-10 - M75.02) 05/31/2025Strain of muscle(s) and tendon(s) of the rotator cuff of left shoulder, subsequent encounter (ICD-10 - S46.012D)05/31/2025dhesive capsulitis of shoulder, left (ICD-10 - M75.02)06/20/2025dhesive capsulitis of shoulder, left (ICD-10 - M75.02)06/26/2025dhesive capsulitis of shoulder, left (ICD-10 - M75.02)05/31/2025arpal tunnel syndrome, left upper limb (ICD-10 - G56.02) 04/15/2025arpal tunnel syndrome, left upper limb (ICD-10 - G56.02)12/19/2024 Adhesive capsulitis of shoulder, left (ICD-10 - M75.02)09/26/2024dhesive capsulitis of shoulder, left (ICD-10 - M75.02)05/31/2025Other For left carpal tunnel syndrome I recommended observation. For her left shoulder work-related rotator cuff tear and flow-through adhesive capsulitis I recommended a manipulation under anesthesia which she agrees to. We have discussed risks of this procedure including but not limited to risk of humerus fracture and no improvement in symptoms. We have gone through additional risks which she understands and has elected proceed. This will serve as the H & P. 06/26/2025Other For her adhesive capsulitis from her work-related injury we will continue with physical therapy. I have written her prescription and provided samples for [employer]. She will follow-up in 6 weeks to reassess her progress. Import medication 08/15/2024Other I have discussed with the patient that at the time of surgery reviewing her operative photos she did have some capsulitis that was present in the rotator interval. We also discussed preoperatively concern for loss of shoulder range of motion postoperatively. I have reassured her that at this point shoulder looks good and she will just need to work through this adhesive capsulitis. She will continue with physical therapy for stretching her shoulder. Will keep her off of work although currently not employed. She will follow-up in 6 weeks to reassess her progress. Import medication a009/26/2024Other Patient continues to show signs of developing flow-through adhesive capsulitis postoperatively froma rotator cuff tear. I have shown her additional exercises to work on restoring motion. She will follow-up in 6 weeks to reassess her progress. If she has not made any improvement in range of motion we have discussed the option for a manipulation under anesthesia. We will keep her off work in the interim. Currently is not employed. Import medication 11/14/2024Other For her left shoulder we we will obtain approval for an MRI to evaluate the rotator cuff repair anddevelopment of adhesive capsulitis. I did prescribe an extended course of prednisone but she will need to ask her general surgeon when she is okay to start this medication with her upcoming surgery. She'll continue working on her therapy exercises and remain off work. Plan has been agreed upon by my supervising physician, Dr. Liana MD. 12/19/2024Other I reviewed her home exercises. She has recovered from her abdominal surgery and just started the prednisone taper 2 days ago. She will follow-up in 1 month to reassess her progress. If symptoms have not improved we discussed the option of a manipulation under anesthesia at that time. Import medication 01/09/2025Other For left shoulder rotator cuff tear and flow-through of adhesive capsulitis I recommended a manipulation under anesthesia to restore her motion. She would also need therapy 5 times a week for 2 weeksand then 3 times a week after that to maintain motion. I discussed risks of surgery including but not limited to risk of no improvement in symptoms, humerus fracture, retear of her rotator cuff. She understands risk of the procedure and has elected to proceed pending the [facility] approval. Will continueon her current work restrictions. Import medication 04/15/2025Other For left carpal tunnel syndrome I recommended observation. For her left shoulder work-related rotator cuff tear and flow-through adhesive capsulitis I recommended a manipulation under anesthesia which she agrees to. We have discussed risks of this procedure including but not limited to risk of humerus fracture and no improvement in symptoms. We have gone through additional risks which she understands and has elected proceed. Import medication Plan Of Treatment Pending Test Test Name Order Date MRI : Shoulder W/O Contrast Left - 30959 07/19/2023 EMG/NCS Upper Extremity, Left 02/28/2025 CBC with diff, BMP, EKG 01/09/2025 CBC with diff, BMP, EKG 04/15/2025 CBC with diff, BMP, EKG 05/09/2024 CBC with diff, BMP, EKG 05/31/2025 BMP 05/30/2024 Surgery Scheduling 05/31/2025 Work Slip w/Restrictions: [place] [employer] was seen in my office today and may return to work with the following restrictions: 07/19/2023 Work Slip w/Restrictions: [place] was seen in my office today and may return to work with the following restrictions: 06/15/2023 PT/OT - Eval and Treat 01/09/2025 Hemoglobin (A1C) 04/15/2025 Hemoglobin (A1C) 05/31/2025 PT EVAL AND TREAT 05/31/2025 PT EVAL AND TREAT 04/15/2025 SCC- PT/OT EVAL AND TREAT 3X/WEEK FOR 6 WEEKS 06/26/2025 SCC- PT/OT ROTATOR CUFF PROTOCOL 3X/WEEK FOR 6 WEEKS 06/06/2024 Next Appt Details Provider Name:Mike Rivera and, 08/07/2025 09:15:00 AM, [address], [place] [address], [place], [address], Insurance Providers Payer Name Payer Address Payer Phone Subscriber Number Group Number Insured Name Patient Relationship to Insured Coverage Start Date Coverage End Date Marcos Jensen c/o [place] [address] [address] [place] [address] [id number] 06-03-22 LEFT SHOULDER Elsa, Employee [employer] [place] [address] [place], [place] [phone] [id number] 09-02-19 RIGHT shoulderLowes,Jldkrsak72/29/2019Wc Elsa c[place] [address] [place], [place] [id number] 10-23-21 rt shoulder, rt hipLowes,Knlbynkw51/18/2022Medicaid [employer] [address] [place] [id number], WANDASelf - patient is the insured Medical (General) History Medical History History ICD Code Heart problems: Yes GI Problems: YesCPAP Machine: NoDo you use the CPAP machine? NoDo you have a pacemaker or AICD(automatic internal cardiac defibrillator)? NoLatex Allergy No Drug Allergies: YesBariatric Surgery: NoHave you been in close contact with someone who has had MRSA within the last year? NoHave you ever had or presently have MRSA? NoAre you a healthcare worker? NoAsthma/COPD YesHeart problems: YesGI Problems: YesDrug Allergies: YesSurgical History Surgery Date(Month/Year) Left shoulder manipulation 06/20/2025 Left shoulder arthroscopic RCR 05/2024 Right shoulder arthroscopic rotator cuff repair with debridement 09/2020 Plantar Fascia Partial HysterectomyAchilles repair right AnkleCarpal tunnel release-Right
--- OUTSIDE RECORDS SUMMARY | 2025-07-18 08:43 | XMS_ITS | Encounter Summary ---
Author Organization [facility] Address [address] [place] [address] Care Team Providers Care Surveillance Supervisor Name Role Phone Cain Magallno MD Unavailable Kolton Brown DO Primary Care Provider Source Comments In the event this information is protected by the Federal Confidentiality of Alcohol and Drug AbusePatient Records regulations: The Federal rules restrict any use of the information to criminally investigate or prosecute any alcohol or drug abuse patient.[facility] Reason for Visit * ReasonCommentsRefill Request Encounter Details DateTypeDepartmentCare Team (Latest Contact Info)Pbotscjvkrv01/09/2025Refill Cardiology [address] [place], [place] [phone] Devon Geiger MD [address] [place] [address] Refill Request Social History Tobacco UseTypesPacks/DayYears UsedDateSmoking Tobacco: NeverSmokeless Tobacco: NeverAlcohol UseStandard Drinks/WeekCommentsNo0 (1 standard drink = 0.6 oz pure alcohol)Area Deprivation IndexAnswerDate RecordedNational Score (1-100), lower number is lower riskNot on file08/14/2020State Score (1-10), lower number is lower riskNot on file08/14/2020Data from: https://www.neighborhoodatlas.medicine.[facility].edu/. Last address used for calculationNot on file08/14/2020CommentsNoSex and Gender Information ValueDate RecordedSex Assigned at QlevhGqerkv83/18/2020 5:46 AM ESTLegal Sex Djwiiu7101/17/2017 10:18 AM EDTGender HcqbzawfZwoogx79/18/2020 5:46 AM ESTSexual UfzbkipeuqoSzvxysnv85/18/2020 5:46 AM ESTdocumented as of this encounter Miscellaneous Notes * Telephone Encounter - Svetlana Ross - 07/15/2025 10:34 AM EST Call from pharmacy requesting refill. Requested Prescriptions Pending Prescriptions Disp Refills ezetimibe (ZETIA) 10 mg tablet [Pharmacy Med Name: EZETIMIBE 10 MG TABLET] 90 tablet 3 Sig: TAKE 1 TABLET BY MOUTH DAILY Patient last seen 06/11/2025. Svetlana Ross Senior Examiner II July 15, 2025 10:34 AM documented in this encounter Plan of Treatment Not on file documented as of this encounter Goals GoalPatient Goal TypeAssociated ProblemsRecent ProgressPatient-Stated?Author Blood Pressure < 130/80 Blood Unsqkeqr884/73(06/11/2025 3:23 PM EDT)NoFulks, Disheiladocumented as of this encounter Visit Diagnoses Diagnosis Mixed hyperlipidemia documented in this encounter Care Teams Team MemberRelationshipSpecialtyStart DateEnd Date Kolton Brown DO [address] [place] [address] PCP - GeneralFamily Txxlxmcz88/2/20 Cain Magallon MD [address] [address] Primary Staff PhysicianCardiology11/21/18documented as of this encounter
--- OUTSIDE RECORDS SUMMARY | 2025-07-18 08:43 | XMS_ITS | Encounter Summary ---
Author Organization [facility] tem Address [id number] [address] [place] [address] Care Team Providers Care Burrer Marker Axle Name Role Phone Kolton Brown DO Primary Care Provider [phone] Reason for Visit * ReasonCommentsMed Refill Encounter Details DateTypeDepartmentCare Team (Latest Contact Info)Qgwehjxbmzf13/09/2025Refill [facility] - Family Medicine [address] [place] [address] oKlton Brown DO [address], [facility] [place], [place] [phone] Social History Tobacco UseTypesPacks/DayYears UsedDateSmoking Tobacco: NeverSmokeless Tobacco: NeverAlcohol UseStandard Drinks/WeekCommentsNot Currently0 (1 standard drink = 0.6 oz pure alcohol)[facility] UtilitiesAnswerDate RecordedIn the past 12 months has the [employer], gas, oil, or water [employer] threatened to shut off services in your home?No01/23/2024Social Connection and Isolation PanelAnswerDate RecordedIn a typical week, how many times do you talk on the phone with family, friends, or neighbors?More than three times a week10/18/2022How often do you get together with friends or relatives?Twice a week10/18/2022How often do you attend druze or orthodox services?Never10/18/2022o you belong to any clubs or organizations such as druze groups, unions, fraternal or athletic groups, or school groups?No 10/18/2022How often do you attend meetings of the clubs or organizations you belong to?Never10/18/2022re you , , , , never , or living with a partner?Ntlthxl7710/18/2022UDIT-CAnswerDate RecordedQ1: How often do you have a [...] care, and heating?Not hard at all01/22/2025PHQ-2AnswerDate RecordedTotal Ngjrb677Final[facility] [place] of Occupational Health - Occupational Stress QuestionnaireAnswerDate [...] of a household?No01/22/2025 ChildcareAnswerDate RecordedDo problems getting child care center administrator make it difficult for you to work [...] highest degree you have received?Associate degree: academic bbesfan7910/18/2022 CommentsNoSex and Gender InformationValueDate RecordedSex Assigned at Hcbcss8106/04/2022 10:35 AM EDTLegal RmfRvatyp13/04/2015 12:01 PM EDTGender KztcubbkIevcda95/30/2022 10:35 AM EDTSexual WuzkjzybjtoPaafumkt94/30/2022 10:39 AM EDTdocumented as of this encounter Plan of Treatment DateTypeDepartmentCare Team (Latest Contact Info)Xeuqnxaldkd61/24/2025 10:30 AM ESTOffice Visit [facility] [address] [place] [address] Kolton Brown DO [address], [facility] [place] [address] documented as of this encounter Visit Diagnoses Not on filedocumented in this encounter Additional Health Concerns AssessmentNoted TimePHQ-9 Depression Total Score: 9:36 AM EDTA Body Mass Index follow-up plan has been documented for the opfojzv8101/24/2025 5:06 PM EDTdocumented as of this encounter Care Teams Team MemberRelationshipSpecialtyStart DateEnd Date Kolton Brown DO [address] [facility] [facility] [place] [address] PCP - GeneralFamily Medicine05/31/22documented as of this encounter
--- NOTE | 2025-07-18 08:51 | MM_ITS ---
Patient Name: LUCHO HELTON MR#: [id number] : 1970 Exam Date: 07/18/2025 Ordering Doctor: DR ELKE PHIPPS RADIOLOGY REPORT PROCEDURE: MM TOMOSYNTHESIS SCREENING BI COMPARISON: MM TOMOSYNTHESIS SCREENING BI, 02/28/2025. MM TOMOSYNTHESIS SCREENING BI, 02/15/2024. MM TOMOSYNTHESIS SCREENING BI, 01/12/2023. INDICATIONS: screening Calculator Name NCI Breast Cancer Risk Assessment Tool 5 Year Breast Cancer Risk 2.80% Lifetime Breast Cancer Risk 18.70% Personal Breast Cancer No Personal Ovarian Cancer No Treatments None Family Cancers Daughter with breast cancer at age 23; Grandmother-maternal with breast cancer at age 60; Sister with small cell cancer at age 56; Brother with esophagus cancer at age 43. LOCATION: [facility] BREAST COMPOSITION: The breasts are almost entirely fatty. FINDINGS: RIGHT BREAST: No significant suspicious finding. LEFT BREAST: No significant suspicious finding. DIAGNOSTIC CATEGORY 1--NEGATIVE. RECOMMENDATIONS: ROUTINE MAMMOGRAM AND CLINICAL EVALUATION IN 12 MONTHS. Dictated by: Cain Soas DO on 07/18/2025 at 15:00 Approved by: Cain Sosa DO on 07/18/2025 at 15:02
== END 2025-07-18 08:39 | disposition home or self-care (01) ==
LOC: MAMMO 08:38
PROVIDERS: PCP Family Medicine; Visit Provider Family Medicine
DX: Z12.31 Encounter for screening mammogram for malignant neoplasm of breast (principal); Z80.3 Family history of malignant neoplasm of breast; Z80.8 Family history of malignant neoplasm of other organs or systems
CPT/HCPCS: 77063; 77067